=== PATIENT | female | born 1950 | race Caucasian/White ===

== ENCOUNTER 2021-12-27 20:08 | Inpatient (IN) | payer OTHER, MEDICAID ==
[~2021-12-27] VITALS: Ht 170.2 cm; Wt 82.7 kg
[2021-12-27 21:22] LABS: Basophils # (auto) 0.1 10 ^3/uL (0-0.2); Basophils % (auto) 0.5 % (0.0-2.0); Eosinophils # (auto) 0.2 10 ^3/uL (0-0.8); Eosinophils % (auto) 1.5 % (0.0-7.0); Hematocrit 43.3 % (36.0-46.0); Hemoglobin 15.3 g/dL (12.2-16.2); Lymphocytes # (auto) 2.5 10 ^3/uL (0.4-5.4); Lymphocytes % (auto) 23.1 % (10.0-50.0); Mean Corpuscular Hemoglobin 30.3 pg (28.0-32.0); Mean Corpuscular Hgb Conc. 35.3 g/dL (32.0-36.0); Mean Corpuscular Volume 85.9 fL (80.0-100.0); Neutrophils % (auto) 65.9 % (37.0-80.0); Nucleated Red Blood Cells % 0.1 %; Red Blood Cells 5.04 10^6/uL (4.0-5.20); Red Cell Distribution Width 13.1 % (11.8-14.3); White Blood Cell 10.7 10^3/uL (4.4-10.8)
[2021-12-27 21:40] LABS: Albumin 3.7 g/dL (3.4-5.0); BUN/Creatinine Ratio 19.1; Calcium 9.3 mg/dL (8.5-10.1); Potassium 3.9 mmol/L (3.5-5.1)
[2021-12-27 21:44] LABS: Bilirubin, Total 0.5 mg/dL (0.2-1.0); Total Protein 7.3 g/dL (6.4-8.2)
[2021-12-28 00:03] LABS: Urine Bacteria FEW /hpf (None Seen); Urine Blood 1+ /uL (Negative); Urine Hyaline Cast MANY /lpf (0 - 2); Urine Mucus FEW (None Seen); Urine Specific Gravity 1.023 (1.001-1.035); Urine WBC 6 /hpf (0 - 5)
[2021-12-28] MEDS ORDERED: ONDANSETRON HCL 4 MG/2 ML VIAL IV PRN (00:45)
[2021-12-28] MEDS ORDERED: ACETAMINOPHEN 325 MG TAB PO PRN (00:45)
[2021-12-28] MEDS ORDERED: DEXTROSE (50%) 50ML SYRG IV PRN (00:45)
[2021-12-28] MEDS: cefTRIAXone 1GM/50ML D5W 50 ML IV SCH ×2 (01:54→21:26)
[2021-12-28 02:27] LABS: Alcohol, Urine < 3.0 mg/dL (0-10); Amphetamine Screen, Urine NEGATIVE (NEGATIVE); Barbiturate Scree,Urine NEGATIVE (NEGATIVE); Benzodiazephine Screen, Urine NEGATIVE (NEGATIVE); Cannabinoid Screen, Urine NEGATIVE (NEGATIVE); Cocaine Screen, Urine NEGATIVE (NEGATIVE); Opiate Scree,Urine NEGATIVE (NEGATIVE); Phencyclidine Screen, Urine NEGATIVE (NEGATIVE)
[2021-12-28 06:17] LABS: INR 1.01 (0.9-1.15); Partial Thromboplastin Time 27.1 sec (23.6-33.0)
[2021-12-28] MEDS: InsuLIN REG 1unit/0.01ml Soln (100units/ml) SC SCH ×4 (07:00→21:52)
[2021-12-28] MEDS: ACCU-CHEK COMFORT CURVE STRIP VI SCH ×4 (07:04→21:26)
[2021-12-28 08:52] VITALS: BP 118/67
[2021-12-28] MEDS ORDERED: PANTOPRAZOLE 40 MG TAB PO SCH (10:00)
[2021-12-28] MEDS: LISINOPRIL 10 MG TAB PO SCH (10:06)
[2021-12-28 13:00] VITALS: BP 109/60
[2021-12-28 17:00] VITALS: BP 99/59
[2021-12-28] MEDS ORDERED: ATORVASTATIN 20 MG TAB PO SCH (22:00)
[2021-12-29 05:00] VITALS: BP 91/59
[2021-12-29 05:29] LABS: Basophils # (auto) 0.1 10 ^3/uL (0-0.2); Basophils % (auto) 0.6 % (0.0-2.0); Eosinophils # (auto) 0.3 10 ^3/uL (0-0.8); Eosinophils % (auto) 3.5 % (0.0-7.0); Hematocrit 38.9 % (36.0-46.0); Hemoglobin 13.7 g/dL (12.2-16.2); Lymphocytes # (auto) 2.3 10 ^3/uL (0.4-5.4); Lymphocytes % (auto) 24.2 % (10.0-50.0); Mean Corpuscular Hemoglobin 30.1 pg (28.0-32.0); Mean Corpuscular Hgb Conc. 35.1 g/dL (32.0-36.0); Mean Corpuscular Volume 85.7 fL (80.0-100.0); Monocytes # (auto) 0.8 10 ^3/uL (0-1.3); Monocytes % (auto) 7.9 % (0.0-12.0); Neutrophils # (auto) 6.1 10 ^3/uL (1.6-8.6); Neutrophils % (auto) 63.8 % (37.0-80.0); Nucleated Red Blood Cells % 0.1 %; Red Blood Cells 4.54 10^6/uL (4.0-5.20); Red Cell Distribution Width 13.2 % (11.8-14.3); White Blood Cell 9.5 10^3/uL (4.4-10.8)
[2021-12-29 05:47] LABS: Calcium 8.8 mg/dL (8.5-10.1); Potassium 3.2 mmol/L (3.5-5.1)
[2021-12-29] MEDS: InsuLIN REG 1unit/0.01ml Soln (100units/ml) SC SCH ×3 (06:09→16:56)
[2021-12-29] MEDS: ACCU-CHEK COMFORT CURVE STRIP VI SCH ×3 (06:09→16:57)
[2021-12-29 08:00] VITALS: BP 100/56
[2021-12-29] MEDS: LISINOPRIL 10 MG TAB PO SCH (10:08)
[2021-12-29 11:59] VITALS: BP 99/51
[2021-12-29] MEDS ORDERED: POTASSIUM CHL 20 Meq TABLET PO ONE (13:00)
[2021-12-29] MEDS ORDERED: LISI-716 PO (14:11)
[2021-12-29] MEDS ORDERED: CIPR250T3 PO (14:11)
[2021-12-29] MEDS ORDERED: ATOR20TA50 PO (14:11)
== END 2021-12-29 17:39 | disposition home or self-care (01) | DRG 71 ==
LOC: EDBD 20:08 → ER 20:10 → OVERFLOW 12-28 00:45 → EAST 12-28 08:39
PROVIDERS: ADMIT Nurse Practitioner; ATTEND Internal Medicine Geriatric Medicine
DX: G93.41 Metabolic encephalopathy (principal); N39.0 Urinary tract infection, site not specified; R29.6 Repeated falls; E11.9 Type 2 diabetes mellitus without complications; F03.90 Unspecified dementia, unspecified severity, without behavioral disturbance, psychotic disturbance, mood disturbance, and anxiety; I10 Essential (primary) hypertension; E78.5 Hyperlipidemia, unspecified; F17.210 Nicotine dependence, cigarettes, uncomplicated; J44.9 Chronic obstructive pulmonary disease, unspecified; R19.7 Diarrhea, unspecified; Z20.822 Contact with and (suspected) exposure to COVID-19; Z86.73 Personal history of transient ischemic attack (TIA), and cerebral infarction without residual deficits
CPT/HCPCS: 36415; 51702; 70450; 71045; 72125; 80048; 80053; 80307; 80320; 81001; 82140; 82962; 83605; 83735; 83880; 84484; 85025; 85610; 85730; 87086; 87426; 93005; G0378; J0696; J1815

== ENCOUNTER 2025-05-01 14:41 | Inpatient (IN) | payer OTHER, MEDICAID ==
[~2025-05-01] VITALS: Ht 165.1 cm; Wt 68.5 kg
[~2025-05-01 14:41] MED LIST: ATOR20TA50 PO; CIPR250T3 PO; LISI10TA34 PO
--- NOTE | 2025-05-01 15:19 | DVH ---
CHEST RADIOGRAPH Indication: ams Technique: Single frontal view of the chest was obtained Comparison: CHEST XRAY 1 VIEW on DOS: 12/27/21 FINDINGS: Lines and Tubes: None Lungs: No focal consolidation. Pleura: No effusion. No pneumothorax. Cardiomediastinal contours: Unremarkable Bones: No acute osseous abnormality. IMPRESSION: 1. No acute cardiopulmonary disease.
--- NOTE | 2025-05-01 15:21 | ED.PDOC ---
History of Present Illness HPI Comments 74-year-old female brought in by EMS presents with a chief complaint of headache. Per EMS, patient is having cognitive decline per family and family wants patient to be checked out for a possible stroke as patient has a history of brain bleeds. Patient is poor historian due to dementia. Patient is on Hospice. Time Seen by MD: 14:43 Reviewed Notes: Medications, Allergies Allergies: Coded Allergies: NO KNOWN ALLERGIES (Unverified , 12/27/21) Home Meds Active Scripts Ciprofloxacin Hcl (Ciprofloxacin Hcl) 250 Mg Tab, 1 TAB PO BID, #20 TAB Prov:BECKY TOVAR MD 12/29/21 Lisinopril (Lisinopril) 10 Mg Tab, 10 MG PO DAILY for 30 Days, #30 TAB Prov:BECKY TOVAR MD 12/29/21 Atorvastatin Calcium (ATORVASTATIN CALCIUM) 20 Mg Tab, 20 MG PO HS for 30 Days, #30 TAB Prov:BECKY TOVAR MD 12/29/21 Information Source: Emergency Med Personnel Mode of Arrival: EMS Severity: Moderate Timing: Hours Duration: Since onset Prehospital treatment: [employer] Past Medical History PAST MEDICAL HISTORY: COPD, Dementia, DM, High Lipids, HTN Surgical History: Unobtainable [facility] ASSISTED LIVING History: Unobtainable Family History Family History: Unobtainable Social History Smoker: Cigarettes Alcohol: Denies ETOH Use Drugs: Denies Drug Use Constitutional: denies: chills, diaphoresis, fatigue, fever, malaise, sweats, weakness, others EENTM: denies: blurred vision, double vision, ear bleeding, ear discharge, ear drainage, ear pain, ear ringing, eye pain, eye redness, hearing loss, mouth pain, mouth swelling, nasal discharge, nose bleeding, nose congestion, nose pain, photophobia, tearing, throat pain, throat swelling, voice changes, others Respiratory: denies: cough, hemoptysis, orthopnea, SOB at rest, shortness of breath, SOB with excertion, stridor, wheezing, others Cardiovascular: denies: chest pain, dizzy spells, diaphoresis, Dyspnea on exertion, edema, irregular heart beat, left arm pain, lightheadedness, palpitations, PND, syncope, others Gastrointestinal: denies: abdomen distended, abdominal pain, blood streaked bowels, constipated, diarrhea, dysphagia, difficulty swallowing, hematemesis, melena, nausea, poor appetite, poor fluid intake, rectal bleeding, rectal pain, vomiting, others Genitourinary: denies: abnormal vagina bleeding, burning, dyspareunia, dysuria, flank pain, frequency, hematuria, incontinence, pain, , vagina discharge, urgency, others Neurological: reports: headache; denies: dizziness, fainting, left sided numbness, left sided weakness, numbness, paresthesia, pre-existing deficit, right sided numbness, right sided weakness, seizure, speech problems, tingling, tremors, weakness, others Musculoskeletal: denies: back pain, gout, joint pain, joint swelling, muscle pain, muscle stiffness, neck pain, others Integumetry: denies: bruises, change in color, change in hair/nails, dryness, laceration, lesions, lumps, rash, wounds, others Allergic/Immunocompromised: denies: Difficulty Healing, Frequent Infections, Hi ves, Itching, others Hematologic/Lymphatic: denies: anemia, blood clots, easy bleeding, easy bruising, swollen glands, others Endocrine: denies: excessive hunger, excessive sweating, excessive thirst, excessive urination, flushing, intolerance to cold, intolerance to heat, unexplained weight gain, unexplained weight loss, others Psychiatric: denies: anxiety, bipolar disorder, depression, hopeless, panic disorder, schizophrenia, sleepless, suicidal, others Unable to Obtain due to: Altered Mental Status, Dementia All Other Systems: Reviewed and Negative Physical Exam General Appearance: No Apparent Distress, Normal HEENT: Normal ENT Inspection, Pharynx Normal, TMs Normal Neck: Full Range of Motion, Non-Tender, Normal, Normal Inspection Respiratory: Chest Non-Tender, Lungs Clear, No Accessory Muscle Use, No Respiratory Distress, Normal Breath Sounds Cardiovascular: No Edema, No JVD, No Murmur, No Gallop, Normal Peripheral Pulses, Regular Rate/Rhythm Breast Exam: Deferred Gastrointestinal: No Organomegaly, Non Tender, No Pulsatile Mass, Normal Bowel Sounds, Soft Genitalia: Deferred Pelvic: Deferred Rectal: Deferred Extremities: No calf tenderness, Normal capillary refill, Normal inspection, Normal range of motion, Non-tender, No pedal edema Musculoskeletal : Apperance: Normal Neurologic: Alert, pin chaser II-XII nml as Tested, No Motor Deficits, Normal Affect, Normal Mood, No Sensory Deficits Cerebellar Function: Normal Reflexes: Normal Skin: Dry, Normal Color, Warm Lymphatic: No Adenopathy Was a procedure done? Was a procedure done?: No Differential Dx Considerations may include: CVA, intracranial bleed, infectious etiology, UTI, viral syndrome, electrolyte abnormality X-Ray, Labs, Meds, VS Vital Signs Date Time Temp Pulse Resp B/P (MAP) Pulse Ox O2 Delivery O2 Flow Rate FiO2 05/01/25 14:51 98.7 76 15 150/80 (103) 98 98.7 Lab Test 05/01/25 16:47 05/01/25 14:57 Range/Units Troponin I High Sensitivity 21 20 </=34 ng/L White Blood Count 8.4 4.4-10.8 10^3/uL Red Blood Count 4.66 4.0-5.20 10^6/uL Hemoglobin 13.9 12.2-16.2 g/dL Hematocrit 40.9 36.0-46.0 % Mean Corpuscular Volume 87.7 80.0-100.0 fL Mean Corpuscular Hemoglobin 29.9 28.0-32.0 pg Mean Corpuscular Hemoglobin Concent 34.1 32.0-36.0 g/dL Red Cell Distribution Width 13.6 11.8-14.3 % Platelet Count 288 140-450 10^3/uL Mean Platelet Volume 7.8 6.9-10.8 fL Neutrophils (%) (Auto) 66.2 37.0-80.0 % Lymphocytes (%) (Auto) 22.1 10.0-50.0 % Monocytes (%) (Auto) 7.7 0.0-12.0 % Eosinophils (%) (Auto) 3.6 0.0-7.0 % Basophils (%) (Auto) 0.4 0.0-2.0 % Neutrophils # (Auto) 5.6 1.6-8.6 10 ^3/uL Lymphocytes # (Auto) 1.9 0.4-5.4 10 ^3/uL Monocytes # (Auto) 0.6 0-1.3 10 ^3/uL Eosinophils # (Auto) 0.3 0-0.8 10 ^3/uL Basophils # (Auto) 0 0-0.2 10 ^3/uL Nucleated Red Blood Cells 0.1 % Sodium Level 141 136-145 mmol/L Potassium Level 5.0 3.5-5.1 mmol/L Chloride Level 103 98-107 mmol/L Carbon Dioxide Level 33 H 20-31 mmol/L Anion Gap 5 5-15 Blood Urea Nitrogen 20 9-23 mg/dL Creatinine 0.90 0.550-1.02 mg/dL Glomerular Filtration Rate Calc 68 >90 mL/min BUN/Creatinine Ratio 22.2 H 10.0-20.0 Serum Glucose 102 74-106 mg/dL Calcium Level 9.7 8.7-10.4 mg/dL Time of 1ST Reevaluation: 15:13 Reevaluation 1ST: Unchanged Patient Education/Counseling: Diagnosis, Treatment, Need For Follow Up Family Education/Counseling: No Family Present SEPSIS Sepsis Screen Physician Orders Urinalysis (05/01/25 14:45) Chest Portable (05/01/25 14:45) Head Without Contrast (05/01/25 14:45) Troponin-I Hs (05/01/25 15:45) Troponin-I Hs (05/01/25 17:45) Vital Signs Date Time Temp Pulse Resp B/P (MAP) Pulse Ox O2 Delivery O2 Flow Rate FiO2 05/01/25 14:51 98.7 76 15 150/80 (103) 98 98.7 Laboratory Tests Test 05/01/25 14:57 White Blood Count 8.4 10^3/uL (4.4-10.8) Departure 1 Departure Time of Disposition: 18:15 (Patient presents with metabolic encephalopathy and worsening confusion. Family is very concerned and wanted a full workup and treatment for patient despite patient was on home hospice. CT scan appears unchanged from prior. We will admit patient for further workup and expert consultation) Impression: Primary Impression: Acute metabolic encephalopathy Additional Impression: Generalized weakness Disposition: ADMITTED INPATIENT Admit to: Med Surg Condition: Serious Critical Care Note Critical Care Time?: Yes Critical care comment: Concern for CVA Authorized and Performed by: Rock Luciano MD Total critical care time: Approximately 37 minutes Due to a high probability of clinically significant, life threatening deterioration, the patient required my highest level of preparedness to intervene emergently and I personally spent this critical care time directly and personally managing the patient. This critical care time included obtaining a history; examining the patient; pulse oximetry; ordering and review of studies; arranging urgent treatment with development of a management plan; evaluation of patient's response to treatment; frequent reassessment; and, discussions with other providers. This critical care time was performed to assess and manage the high probability of imminent, life-threatening deterioration that could result in multi-organ failure. It was exclusive of separately billable procedures and treating other patients and teaching time. Please see my other sections and the rest of the note for further information on patient assessment and treatment. Stability Stability form required: No Heart Score Heart Score: Heart Score Response (Comments) Value History N/A 0 EKG N/A 0 Age N/A 0 Risk Factors N/A 0 Troponin N/A 0 Total 0 I personally scribed for ROCK LUCIANO MD ([email or web address]) on 05/01/25 at 15:21. Electronically submitted by José Beverly ([email or web address]). ROCK LUCIANO MD May 01, 2025 15:21
[2025-05-01 15:23] LABS: Chloride 103 mmol/L (98-107); Potassium 5.0 mmol/L (3.5-5.1); Sodium 141 mmol/L (136-145)
[2025-05-01 15:24] LABS: Anion Gap 5 (5-15)
[2025-05-01 15:25] LABS: Calcium 9.7 mg/dL (8.7-10.4)
[2025-05-01 15:27] LABS: Hematocrit 40.9 % (36.0-46.0); Hemoglobin 13.9 g/dL (12.2-16.2); Mean Corpuscular Hemoglobin 29.9 pg (28.0-32.0); Mean Corpuscular Volume 87.7 fL (80.0-100.0); Nucleated Red Blood Cells % 0.1 %
[2025-05-01 15:29] LABS: Carbon Dioxide 33 mmol/L (20-31)
[2025-05-01 15:30] LABS: BUN/Creatinine Ratio 22.2 (10.0-20.0); Blood Urea Nitrogen 20 mg/dL (9-23); Glucose 102 mg/dL (74-106)
--- NOTE | 2025-05-01 15:47 | DVH ---
EXAM: CT HEAD WITHOUT CONTRAST INDICATION: ams TECHNIQUE: CT of the head without intravenous contrast. Coronal and sagittal reformatted images are s ubmitted. Radiation Dose : 1. Head: CT Dose: CTDI volume is 52.4 mGy. Dose-length product is 926.2 mGy*cm The dose indicators for CT are the volume Computed Tomography (CT) Dose Index (CTDIvol) and the Dose Length Product (DLP), and are measured in units of mGy and mGy-cm, respectively. These indicators are not patient dose, but values generated from the CT scanner acquisition factors. The report includes radiation exposure data for exposures received during this examination. All CT scans at this medical facility are performed using dose modulation techniques as appropriate to a performed exam including the following: Automated exposure control was utilized; adjustment of the MA and/or KV according to patient size; and use of iterative reconstruction technique. COMPARISON: HEAD WITHOUT CONTRAST on DOS: 12/27/21 FINDINGS: There is no evidence of acute intracranial hemorrhage, extra-axial collection, mass effect, midline s hift, herniation or hydrocephalus. There is a chronic left [employer]DE[employer] MILL OPERATOR infarct with ex vacuo dilatation of the left lateral ventricle. Mildly dilated left lateral ventricle. There are periventricular and subcortical hypodensities, nonspecific, but likely reflecting sequelae of chronic microvascular ischemic changes. The ahmadi-white differentiation is intact. The visualized paranasal sinuses and mastoid air cells are clear. No depressed calvarial fracture. The surrounding soft tissues are unremarkable. IMPRESSION: 1. No acute intracranial abnormality. 2. Chronic left [employer]ANDEM MILL OPERATOR infarct with ex vacuo dilatation of the left lateral ventricle.
[2025-05-01 17:03] VITALS: PULSE 76; RESP 16; O2SAT 99
[2025-05-01 19:30] VITALS: RESP 18; O2SAT 96
[2025-05-01] MEDS: METOPROLOL TARTRATE 50 MG TAB PO ONE (22:15)
[2025-05-01] MEDS: SODIUM CHLORIDE 0.9% 1,000 ML IV SCH (22:15)
[2025-05-01] MEDS ORDERED: MORPHINE SULFATE INJ 2 MG/ml SYRG IV PRN (22:15)
[2025-05-01] MEDS ORDERED: NITROGLYCERIN 0.4 MG SL TAB SL PRN (22:15)
[2025-05-01] MEDS: FAMOTIDINE 20 MG TAB PO ONE (22:15)
[2025-05-01] MEDS ORDERED: ACETAMINOPHEN 325 MG TAB PO PRN (22:15)
--- NOTE | 2025-05-01 22:28 | DVHHP2 ---
History of Present Illness History of Present Illness This is a 74-year-old female with past medical history of COPD with no home oxygen, Dementia, DM 2, HLD, stroke-April 2019, HTN, Depression BIBEMS due to headache for 2 weeks which is worsen x week 08/02, occasionally radiates to neck, aggravating on noise but no relieving factors. Her daughter Darcy on bedside and informed patient lives with care-legal director, lost more than 10 lb last 2 week. Patient feelings generalized weakness for same duration. Walks with walker at home, follow up with hospice team [facility] providers. Per EMS, patient is having cognitive decline per family and family wants patient to be checked out for a possible stroke. Patient is poor historian due to dementia. Patient denies any nausea, vomiting, abdominal pain, SOB, chest pain, diarrhea, constipation, vertigo, visual disturbance, photophobia. PAST MEDICAL HISTORY: COPD with no home oxygen, Dementia, DM 2, HLD, stroke-April 2019, HTN, Depression Surgical History: None Family History: Noncontributory Smoker: ex-smoker Alcohol: Denies ETOH Use Drugs: Denies Drug Use Allergy: No known allergy PCP: hospice team [facility] providers. Review of Systems Constitutional: Yes: Weakness; No: Fever, Chills, Sweats, Malaise, Other Eyes: No: Pain, Vision change, Conjunctivae inflammation, Eyelid inflammation, Other, Redness ENT: No: Ear pain, Ear discharge, Nose pain, Nose discharge, Nose congestion, Mouth pain, Mouth swelling, Throat pain, Throat swelling, Other Respiratory: No: Cough, Dry, Shortness of breath, SOB with excertion, Wheezing, Hemoptysis, Pleuritic Pain, Sputum, Wheezing, Other Cardiovascular: No: Chest Pain, Palpitations, Orthopnea, Paroxysmal Noc. Dyspnea, Edema, Lt Headedness, Other Gastrointestinal: No: Nausea, Vomiting, Abdominal Pain, Diarrhea, Constipation, Melena, Hematochezia, Other Genitourinary: No Dysuria, No Frequency, No Incontinence, No Hematuria, No Retention, No Other Musculoskeletal: No: other, neck pain, shoulder pain, arm pain, back pain, hand pain, leg pain, foot pain Skin: No: Rash, Lesions, Jaundice, Bruising, Other Neurological: Other (HEADACHE) Allergies: Coded Allergies: NO KNOWN ALLERGIES (Unverified , 12/27/21) Medications Current Medications Medications Dose Ordered Sig/Sera Route Start Time Stop Time Status Last Admin Dose Admin Nitroglycerin 0.4 mg Q5MINP PRN SL 05/01/25 22:15 Morphine Sulfate 2 mg Q30M PRN IV 05/01/25 22:15 Sodium Chloride 1,000 ml @ 75 mls/hr [id number] IV 05/01/25 22:15 UNV Famotidine 20 mg BID PO 05/02/25 10:00 UNV Acetaminophen 650 mg Q6HP PRN PO 05/01/25 22:15 UNV Apixaban 5 mg BID PO 05/02/25 10:00 UNV Risperidone 1 mg DAILY PO 05/02/25 10:00 UNV Atorvastatin Calcium 40 mg HS PO 05/02/25 22:00 UNV Exam Vital Signs Vital Signs Date Time Temp Pulse Resp B/P (MAP) Pulse Ox O2 Delivery O2 Flow Rate FiO2 05/01/25 20:00 73 05/01/25 19:30 18 96 Room Air* 0 21 05/01/25 17:00 98.0 166/81 (109) 98.0 General Appearance: Alert, Cooperative, Other (GENERALIZED WEAKNESS) HEENT: PERRLA, EOMI Respiratory: Clear to auscultation, Normal air movement Cardiovascular: Regular rate, Normal S1, Normal S2 Abdominal: Normal bowel sounds, Soft, No tenderness, No hepatospenomegaly Extremities: No clubbing, No cyanosis, No edema Skin: No rashes, No breakdown Neuro: Other (CONTINUOUS MOVEMENT LIPS DURING CONVERSATION) Labs/Xrays Labs Test 05/01/25 18:31 05/01/25 14:57 Range/Units Troponin I High Sensitivity 22 </=34 ng/L White Blood Count 8.4 4.4-10.8 10^3/uL Red Blood Count 4.66 4.0-5.20 10^6/uL Hemoglobin 13.9 12.2-16.2 g/dL Hematocrit 40.9 36.0-46.0 % Mean Corpuscular Volume 87.7 80.0-100.0 fL Mean Corpuscular Hemoglobin 29.9 28.0-32.0 pg Mean Corpuscular Hemoglobin Concent 34.1 32.0-36.0 g/dL Red Cell Distribution Width 13.6 11.8-14.3 % Platelet Count 288 140-450 10^3/uL Mean Platelet Volume 7.8 6.9-10.8 fL Neutrophils (%) (Auto) 66.2 37.0-80.0 % Lymphocytes (%) (Auto) 22.1 10.0-50.0 % Monocytes (%) (Auto) 7.7 0.0-12.0 % Eosinophils (%) (Auto) 3.6 0.0-7.0 % Basophils (%) (Auto) 0.4 0.0-2.0 % Neutrophils # (Auto) 5.6 1.6-8.6 10 ^3/uL Lymphocytes # (Auto) 1.9 0.4-5.4 10 ^3/uL Monocytes # (Auto) 0.6 0-1.3 10 ^3/uL Eosinophils # (Auto) 0.3 0-0.8 10 ^3/uL Basophils # (Auto) 0 0-0.2 10 ^3/uL Nucleated Red Blood Cells 0.1 % Sodium Level 141 136-145 mmol/L Potassium Level 5.0 3.5-5.1 mmol/L Chloride Level 103 98-107 mmol/L Carbon Dioxide Level 33 H 20-31 mmol/L Anion Gap 5 5-15 Blood Urea Nitrogen 20 9-23 mg/dL Creatinine 0.90 0.550-1.02 mg/dL Glomerular Filtration Rate Calc 68 >90 mL/min BUN/Creatinine Ratio 22.2 H 10.0-20.0 Serum Glucose 102 74-106 mg/dL Calcium Level 9.7 8.7-10.4 mg/dL SEPSIS Sepsis Screen Date sepsis recognized/suspect: May 01, 2025 Time Sepsis recognized/suspect: 1450 Recent Procedure: No On Antibiotic Therapy: No Respiratory Rate >20: No Heart Rate >90: No Temp<36 C (96.8 F) or >38.3 C: No SBP <90 or MAP <65 mmHG: No New Acute Mental Status Change: No Is the patient on CPAP, BIPAP,: No Physician Orders Urinalysis (05/01/25 14:45) Chest Portable (05/01/25 14:45) Head Without Contrast (05/01/25 14:45) Admit (05/01/25 22:05) Nitroglycerin Sublingual (Ntrostat Subli (05/01/25 22:15) Morphine Sulfate Injection (05/01/25 22:15) Urinalysis (05/01/25 22:14) NS (05/01/25 22:15) Famotidine Tablet (Pepcid Tablet) (05/02/25 10:00) Famotidine Tablet (Pepcid Tablet) (05/01/25 22:15) Acetaminophen Tablet (Tylenol Tablet) (05/01/25 22:15) Code Status (05/01/25 22:14) Apixaban (Eliquis) (05/02/25 10:00) Risperidone Tablet (Risperdal Tablet) (05/02/25 10:00) Risperidone Tablet (Risperdal Tablet) (05/02/25 22:00) Atorvastatin (Lipitor) (05/02/25 22:00) Metoprolol Tartrate Tablet (Lopressor Ta (05/01/25 22:15) Metoprolol Tartrate Tablet (Lopressor Ta (05/02/25 10:00) Quetiapine Fumarate Tablet (Seroquel Tab (05/02/25 10:00) Lisinopril Tablet (Zestril Tablet) (05/02/25 10:00) Trazodone Hcl (Desyrel) (05/02/25 22:00) Vital Signs Date Time Temp Pulse Resp B/P (MAP) Pulse Ox O2 Delivery O2 Flow Rate FiO2 05/01/25 20:00 73 05/01/25 19:30 18 96 Room Air* 0 21 05/01/25 17:03 76 16 99 Room Air* 0 21 05/01/25 17:00 98.0 76 16 166/81 (109) 99 98.0 05/01/25 14:51 98.7 76 15 150/80 (103) 98 98.7 Laboratory Tests Test 05/01/25 14:57 White Blood Count 8.4 10^3/uL (4.4-10.8) Assessment/Plan Assessment/Plan #Cognitive decline likely due to Acute metabolic encephalopathy -Per EMS, patient is having cognitive decline. -patient history of stroke associated with multiple comorbid medical condition -Poor historian, daughter bedside, lives with caregivers -TROPONIN-20>21>22 -CT head w/o contrast: No acute intracranial abnormality. Chronic left CAMPAIGN MANAGER infarct with ex vacuo dilatation of the left lateral ventricle. -UA, TSH, VITAMIN B12, FOLIC ACID, A1C order -start home medication risperidone 1 mg bedtime, quetiapine 50 mg po b.i.d. -NSS75 cc/hours -CMP will follow #COPD with no home oxygen -Ex- smokers, not on any medication #Dementia -Can not take care herself. -CT head w/o contrast: No acute intracranial abnormality. Chronic left CAMPAIGN MANAGER infarct with ex vacuo dilatation of the left lateral ventricle. # Type 2 diabetes mellitus -CMP blood glucose 102 -HOLD home medication metformin 1000 mg, glipizide 5 mg -Will order insulin according to blood sugar -HbA1c order # HYPERLIPIDEMIA -Atorvastatin 40 mg p.o. daily #Stroke-April 2019 WITH NO RESIDUAL WEAKNESS -CT head w/o contrast: No acute intracranial abnormality. Chronic left CAMPAIGN MANAGER infarct with ex vacuo dilatation of the left lateral ventricle -Eliquis 5 mg p.o. b.i.d. # ESSENTIAL HYPERTENSION -Metoprolol 50 mg p.o. b.i.d. -Lisinopril 10 mg p.o. daily #Depression -Trazodone 50 mg po at bedtime Diet: Regular GI prophylaxis: Famotidine 20 mg p.o. DVT prophylaxis: Eliquis5 mg p.o. b.i.d. Goals of care discussions. More than 20 9 minute spent. Code status-DNR. Case discussed with Dr. Baca Plan discussed with: Patient, Other (NURSE) My Orders Orders - COLLETTE MORAN RESIDENT Procedure Category Date Status Time Admit ADMIT 05/01/25 Transmitted 22:05 Nitroglycerin PHA 05/01/25 In Process Sublingual (Ntrostat 22:15 Morphine Sulfate PHA 05/01/25 In Process Injection 22:15 Urinalysis LAB 05/01/25 Transmitted 22:14 NS PHA 05/01/25 Transmitted 22:15 Famotidine Tablet PHA 05/02/25 Transmitted (Pepcid Tablet) 10:00 Famotidine Tablet PHA 05/01/25 Transmitted (Pepcid Tablet) 22:15 Acetaminophen Tablet PHA 05/01/25 Transmitted (Tylenol Tablet) 22:15 Code Status CODE 05/01/25 Transmitted 22:14 Apixaban (Eliquis) PHA 05/02/25 Transmitted 10:00 Risperidone Tablet PHA 05/02/25 Transmitted (Risperdal Tablet) 10:00 Risperidone Tablet PHA 05/02/25 Transmitted (Risperdal Tablet) 22:00 Atorvastatin (Lipitor) PHA 05/02/25 Transmitted 22:00 Metoprolol Tartrate PHA 05/01/25 Transmitted Tablet (Lopressor Ta 22:15 Metoprolol Tartrate PHA 05/02/25 Transmitted Tablet (Lopressor Ta 10:00 Quetiapine Fumarate PHA 05/02/25 Transmitted Tablet (Seroquel Tab 10:00 Lisinopril Tablet PHA 05/02/25 Transmitted (Zestril Tablet) 10:00 Trazodone Hcl PHA 05/02/25 Transmitted (Desyrel) 22:00 Date of Service: May 01, 2025 Billing Provider: ANDREA BACA MD Common Visit Codes: 01622-[id number] INP/OBS CARE (HIGH) Secondary Visit Codes: 53956-[id number] CARE PLAN 30 MINUTES COLLETTE MORAN RESIDENT May 01, 2025 22:28
[2025-05-02 02:58] VITALS: BP 139/76; PULSE 72; RESP 18; RESP 19; TEMP 98; O2SAT 95
[2025-05-02 05:11] VITALS: BP 130/72; PULSE 70; RESP 19; TEMP 98; O2SAT 96
[2025-05-02] MEDS ORDERED: QUET100T47 PO (06:11)
[2025-05-02] MEDS ORDERED: GLIP5TAB21 PO (06:11)
[2025-05-02] MEDS ORDERED: APIX5TAB PO (06:11)
[2025-05-02] MEDS ORDERED: RISP1TAB63 PO (06:11)
[2025-05-02] MEDS ORDERED: METF-370 PO (06:11)
[2025-05-02] MEDS ORDERED: TRAZ-227 PO (06:11)
[2025-05-02] MEDS ORDERED: FURO20TA3 PO (06:11)
[2025-05-02 07:07] LABS: Alanine Aminotransferase 14 U/L (7-40); Albumin 4.4 g/dL (3.2-4.8); Alkaline Phosphatase 95 U/L (46-116); Anion Gap 9 (5-15); BUN/Creatinine Ratio 15.8 (10.0-20.0); Blood Urea Nitrogen 16 mg/dL (9-23); Calcium 9.6 mg/dL (8.7-10.4); Carbon Dioxide 29 mmol/L (20-31); Chloride 105 mmol/L (98-107); Potassium 3.9 mmol/L (3.5-5.1); Sodium 143 mmol/L (136-145); Total Protein 6.9 g/dL (5.7-8.2)
[2025-05-02 07:08] LABS: Bilirubin, Total 0.6 mg/dL (0.2-1.0); Glucose 113 mg/dL (74-106)
[2025-05-02 08:16] LABS: Hematocrit 41.8 % (36.0-46.0); Hemoglobin 14.3 g/dL (12.2-16.2); Mean Corpuscular Hemoglobin 29.9 pg (28.0-32.0); Mean Corpuscular Volume 87.6 fL (80.0-100.0); Nucleated Red Blood Cells % 0.1 %
[2025-05-02] MEDS: FAMOTIDINE 20 MG TAB PO SCH (10:01)
[2025-05-02] MEDS: APIXABAN 5 MG TAB PO SCH (10:01)
[2025-05-02] MEDS: METOPROLOL TARTRATE 50 MG TAB PO SCH (10:02)
[2025-05-02] MEDS: LISINOPRIL 5 MG TAB PO SCH (10:02)
[2025-05-02] MEDS: risperiDONE 1 MG TAB PO SCH (10:04)
[2025-05-02] MEDS: SODIUM CHLORIDE 0.9% 1,000 ML IV SCH (10:15)
[2025-05-02 13:30] VITALS: BP 165/85; PULSE 66; RESP 19; TEMP 98.7; O2SAT 95
[2025-05-02 14:15] VITALS: BP 128/78
[2025-05-02] MEDS ORDERED: hydrALAZINE HCL 20 MG/ML VL IV PRN (17:15)
[2025-05-02] MEDS ORDERED: DEXTROSE (50%) 50ML SYRG IV PRN (17:15)
[2025-05-02 17:30] VITALS: BP 118/58; PULSE 76; RESP 18; TEMP 98.4; O2SAT 99
--- NOTE | 2025-05-02 17:45 | DVHPNRES ---
Progress Note Date Seen: May 02, 2025 Resident Creating Document: THIERNO CARR RESIDENT Has the PT tested + for MRSA If YES, has PT been informed?: No Medical Necessity Reason Pt with a Central, PICC or Fol: No Subjective Review of Systems This is a 74-year-old female with past medical history of COPD with no home oxygen, Dementia, DM 2, HLD, stroke-April 2019, HTN, Depression, Patient was brought to the ED due to headache for 2 weeks which is worsen x week 08/02, occasionally radiates to neck, aggravating on noise but no relieving factors. 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 Patient feelings generalized weakness for same duration. Walks with walker at home, follow up with hospice team [facility] providers. Per EMS, patient is having cognitive decline per family and family wants patient to be checked out for a possible stroke. Patient is poor historian due to dementia. Patient denies any nausea, vomiting, abdominal pain, SOB, chest pain, diarrhea, constipation, vertigo, visual disturbance, photophobia. 05/02/25: Patient was evaluated at bedside today, she reports the headache have improved /, start presenting nausea, no vomit, vital signs were reviewed, BP today is: 130/72, UA and urine culture were requested today, fluids were added it. Patient will be followed up closely. ROS: Constitutional: Alert, active, No: Fever, Chills, Sweats, Malaise, Other Eyes: No: Pain, Vision change, Conjunctivae inflammation, Eyelid inflammation, Other, Redness ENT: No: Ear pain, Ear discharge, Nose pain, Nose discharge, Nose congestion, Mouth pain, Mouth swelling, Throat pain, Throat swelling, Other Respiratory: No: Cough, Dry, Shortness of breath, SOB with excertion, Wheezing, Hemoptysis, Pleuritic Pain, Sputum, Wheezing, Other Cardiovascular: No: Chest Pain, Palpitations, Orthopnea, Paroxysmal Noc. Dyspnea, Edema, Lt Headedness, Other Gastrointestinal: Nausea, no Vomiting, Abdominal Pain, Diarrhea, Constipation, Melena, Hematochezia, Other Genitourinary: No Dysuria, No Frequency, No Incontinence, No Hematuria, No Retention, No Other Musculoskeletal: No: other, neck pain, shoulder pain, arm pain, back pain, hand pain, leg pain, foot pain Skin: No: Rash, Lesions, Jaundice, Bruising, Other Neurological: Other (HEADACHE) Allergies: UNK allergies Objective vital signs Vital Sign Date Time Temp Pulse Resp B/P (MAP) Pulse Ox O2 Delivery O2 Flow Rate FiO2 05/02/25 13:30 98.7 66 19 165/85 (111) 95 98.7 05/02/25 08:00 Room Air* 0 21 Total Intake and Output 05/01/25 05/01/25 05/02/25 15:00 23:00 07:00 Intake Total 0 ml Balance 0 ml medications Current Medications Medications Dose Ordered Sig/Sera Route Start Time Stop Time Status Last Admin Dose Admin Nitroglycerin 0.4 mg Q5MINP PRN SL 05/01/25 22:15 Morphine Sulfate 2 mg Q30M PRN IV 05/01/25 22:15 Sodium Chloride 1,000 ml @ 75 mls/hr [id number] IV 05/01/25 22:15 05/02/25 10:13 75 MLS/HR Famotidine 20 mg BID PO 05/02/25 10:00 05/02/25 10:01 20 MG Acetaminophen 650 mg Q6HP PRN PO 05/01/25 22:15 Apixaban 5 mg BID PO 05/02/25 10:00 05/02/25 10:01 5 MG Risperidone 1 mg DAILY PO 05/02/25 10:00 05/02/25 10:04 1 MG Atorvastatin Calcium 40 mg HS PO 05/02/25 22:00 Metoprolol Tartrate 50 mg BID PO 05/02/25 10:00 05/02/25 10:02 50 MG Quetiapine Fumarate 50 mg BID PO 05/02/25 10:00 05/02/25 10:04 50 MG Lisinopril 10 mg DAILY PO 05/02/25 10:00 05/02/25 10:02 10 MG Trazodone HCl 50 mg HS PO 05/02/25 22:00 Diagnostic Test (Pha) 1 strip ACHS 05/02/25 22:00 Insulin Human Regular ACHS SC 05/02/25 22:00 Dextrose 50 ml UD PRN IV 05/02/25 17:15 Hydralazine HCl 10 mg Q6HP PRN IV 05/02/25 17:15 Examination General Appearance: Alert, Cooperative. HEENT: PERRLA, EOMI Respiratory: Clear to auscultation, Normal air movement Cardiovascular: Regular rate, Normal S1, Normal S2 Abdominal: Normal bowel sounds, Soft, No tenderness, No hepatospenomegaly Extremities: No clubbing, No cyanosis, No edema Skin: No rashes, No breakdown Neuro: Oriented only in placed, strength normal, Cranial nerves intact. laboratory and microbiology Laboratory Tests 05/02/25 06:09 Test 05/02/25 06:09 Range/Units Serum Glucose 113 H 74-106 mg/dL Problem List/Assessment/Plan Problem List/Assessment/Plan Assessment/Plan #Cognitive decline likely due to Acute metabolic encephalopathy #R/O: acute stroke #Complex migraine with intractable nausea -Per EMS, patient is having cognitive decline. -patient history of stroke associated with multiple comorbid medical condition -Poor historian, daughter bedside, lives with caregivers -TROPONIN-20>21>22 -CT head w/o contrast: No acute intracranial abnormality. 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 -UA, TSH, VITAMIN B12, FOLIC ACID, A1C order -start home medication risperidone 1 mg bedtime, quetiapine 50 mg po b.i.d. -NSS75 cc/hours -CMP will follow #COPD with no home oxygen -Ex- smokers, not on any medication #Dementia -Can not take care herself. -CT head w/o contrast: No acute intracranial abnormality. 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 # Type 2 diabetes mellitus currently pre-diabetic range -[facility] blood glucose 102 -HOLD home medication metformin 1000 mg, glipizide 5 mg -Will order insulin according to blood sugar -HbA1c 6.0 # Hyperlipidemia -Atorvastatin 40 mg p.o. daily #Stroke-April 2019 WITH NO RESIDUAL WEAKNESS #History of tachyarrythmia unspecified -CT head w/o contrast: No acute intracranial abnormality. 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 b.i.d. # Essential hypertension -Metoprolol 50 mg p.o. b.i.d. -Lisinopril 10 mg p.o. daily #Depression -Trazodone 50 mg po at bedtime Diet: Regular GI prophylaxis: Famotidine 20 mg p.o. DVT prophylaxis: Eliquis5 mg p.o. b.i.d. Goals of care discussions. More than 35minute spent. Code status-DNR. Case discussed with Dr. Reese Plan discussed with: Patient and patient's daugther, Patient and family member (daughter agrees with the plan) Plan discussed with: Patient, Daughter My Orders My Orders Orders - THIERNO CARR RESIDENT Procedure Category Date Status Time Urinalysis LAB 05/02/25 Logged 09:48 Urine Bacterial BRIDGETTE 05/02/25 In Process Culture 10:37 * Merchandise Stocker CONS 05/02/25 Transmitted Consult Initiate Vte ESTER 05/02/25 In Process Prophylaxis 12:13 Dietary Evaluation Review Comments: 1. Monitor PO intake to meet 75% of her needs, 2. Folow up with progress/consultation notes 3. Offer oral supplementation if PO <50% 4. F/U 3-5 days Expected Outcomes/Goals: maintain wt Date of Service: May 02, 2025 Billing Provider: MOIRA ARREDONDO MD Common Visit Codes: [id number] INP/OBS CARE(HIGH) THIERNO CARR RESIDENT May 02, 2025 17:45 MOIRA ARREDONDO MD May 06, 2025 01:11
[2025-05-02 21:00] VITALS: BP 133/84; PULSE 53; RESP 18; TEMP 98.2; O2SAT 90
[2025-05-02] MEDS: ATORVASTATIN 20 MG TAB PO SCH (21:23)
[2025-05-02] MEDS: risperiDONE 1 MG TAB PO ONE (21:24)
[2025-05-02] MEDS: ACCU-CHEK COMFORT CURVE STRIP VI SCH (21:25)
[2025-05-02] MEDS: InsuLIN REG 1unit/0.01ml Soln (100units/ml) SC SCH (21:32)
[2025-05-03 01:00] VITALS: BP 109/50; PULSE 58; RESP 18; TEMP 97.3; O2SAT 95
[2025-05-03 05:00] VITALS: BP 99/60; PULSE 67; RESP 18; TEMP 97.1; O2SAT 95
[2025-05-03 08:06] LABS: Anion Gap 7 (5-15); Carbon Dioxide 29 mmol/L (20-31); Potassium 4.1 mmol/L (3.5-5.1); Sodium 144 mmol/L (136-145)
[2025-05-03 08:07] LABS: Hematocrit 40.3 % (36.0-46.0); Hemoglobin 13.7 g/dL (12.2-16.2); Mean Corpuscular Hemoglobin 30.0 pg (28.0-32.0); Mean Corpuscular Volume 88.3 fL (80.0-100.0); Nucleated Red Blood Cells % 0.1 %
[2025-05-03 08:08] LABS: Calcium 10.0 mg/dL (8.7-10.4)
[2025-05-03 08:12] LABS: BUN/Creatinine Ratio 23.2 (10.0-20.0); Blood Urea Nitrogen 23 mg/dL (9-23); Chloride 108 mmol/L (98-107); Glucose 100 mg/dL (74-106)
[2025-05-03 09:00] VITALS: BP 116/62; PULSE 60; RESP 17; TEMP 98.1; O2SAT 97
[2025-05-03 13:00] VITALS: BP 115/55; PULSE 65; RESP 17; TEMP 98.2; O2SAT 98
[2025-05-03 13:54] LABS: Urine Protein, UAD Negative (Negative)
[2025-05-03] MEDS ORDERED: CIPR500T4 PO (14:41)
[2025-05-03] MEDS ORDERED: DOXY1CAP57 PO (14:41)
--- NOTE | 2025-05-03 15:13 | DVHDSRES ---
Discharge Summary Date of Admission Resident Creating Document: THIERNO CARR RESIDENT May 01, 2025 at 22:05 Date of Discharge: May 03, 2025 Labs/Diagnostic Data: Laboratory Results Test 05/03/25 13:40 05/03/25 10:59 05/03/25 07:18 05/02/25 07:43 Urine Color Light-yellow (Yellow) Urine Clarity Cloudy (Clear) Urine pH 5.5 (5.0-9.0) Urine Specific [place] 1.018 (1.001-1.035) Urine Protein Negative (Negative) Urine Ketones Negative (Negative) Urine Blood Negative /uL (Negative) Urine Nitrite Negative (Negative) Urine Bilirubin Negative (Negative) Urine Urobilinogen Normal mg/dL (Negative) Urine Leukocyte Esterase 3+ /uL (Negative) Urine RBC 3 /hpf (0 - 4) Urine Microscopic WBC 197 /HPF (0-5) Urine Squamous Epithelial Cells Few /hpf (<5) Urine Bacteria Few /hpf (None Seen) Urine Glucose Normal mg/dL (Normal) POC Glucose 140 mg/dl (70-106) White Blood Count 7.6 10^3/uL (4.4-10.8) Red Blood Count 4.57 10^6/uL (4.0-5.20) Hemoglobin 13.7 g/dL (12.2-16.2) Hematocrit 40.3 % (36.0-46.0) Mean Corpuscular Volume 88.3 fL (80.0-100.0) Mean Corpuscular Hemoglobin 30.0 pg (28.0-32.0) Mean Corpuscular Hemoglobin Concent 33.9 g/dL (32.0-36.0) Red Cell Distribution Width 13.5 % (11.8-14.3) Platelet Count 260 10^3/uL (140-450) Mean Platelet Volume 7.8 fL (6.9-10.8) Neutrophils (%) (Auto) 62.5 % (37.0-80.0) Lymphocytes (%) (Auto) 25.0 % (10.0-50.0) Monocytes (%) (Auto) 7.9 % (0.0-12.0) Eosinophils (%) (Auto) 4.1 % (0.0-7.0) Basophils (%) (Auto) 0.5 % (0.0-2.0) Neutrophils # (Auto) 4.7 10 ^3/uL (1.6-8.6) Lymphocytes # (Auto) 1.9 10 ^3/uL (0.4-5.4) Monocytes # (Auto) 0.6 10 ^3/uL (0-1.3) Eosinophils # (Auto) 0.3 10 ^3/uL (0-0.8) Basophils # (Auto) 0 10 ^3/uL (0-0.2) Nucleated Red Blood Cells 0.1 % Sodium Level 144 mmol/L (136-145) Potassium Level 4.1 mmol/L (3.5-5.1) Chloride Level 108 mmol/L (98-107) Carbon Dioxide Level 29 mmol/L (20-31) Anion Gap 7 (5-15) Blood Urea Nitrogen 23 mg/dL (9-23) Creatinine 0.99 mg/dL (0.550-1.02) Glomerular Filtration Rate Calc 60 mL/min (>90) BUN/Creatinine Ratio 23.2 (10.0-20.0) Serum Glucose 100 mg/dL (74-106) Calcium Level 10.0 mg/dL (8.7-10.4) Ammonia 29 umol/L (11-32) Test 05/02/25 06:09 05/01/25 18:31 Hemoglobin A1c 6.0 % A1C (<5.7) Total Bilirubin 0.6 mg/dL (0.2-1.0) Aspartate Amino Transferase (AST) 18 U/L (13-40) Alanine Aminotransferase (ALT) 14 U/L (7-40) Alkaline Phosphatase 95 U/L (46-116) Total Protein 6.9 g/dL (5.7-8.2) Albumin 4.4 g/dL (3.2-4.8) Vitamin B12 Level 417 pg/mL (211-911) Vitamin D 25-Hydroxy 48.4 ng/mL (30.0-100) Folic Acid 20.62 ng/mL (>5.38) Thyroid Stimulating Hormone (TSH) 1.68 uIU/mL (0.55-4.78) Troponin I High Sensitivity 22 ng/L (</=34) Other Laboratory Tests 05/03/25 07:18 Brief Hx & Hospital Course: This is a 74-year-old female with past medical history of COPD with no home oxygen, Dementia, DM 2, HLD, stroke-April 2019, HTN, Depression, Patient was brought to the ED due to headache for 2 weeks which is worsen x week 08/02, occasionally radiates to neck, aggravating on noise but no relieving factors. 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 Patient feelings generalized weakness for same duration. Walks with walker at home, follow up with hospice team [facility] providers. Per EMS, patient is having cognitive decline per family and family wants patient to be checked out for a possible stroke. Patient is poor historian due to dementia. Patient denies any nausea, vomiting, abdominal pain, SOB, chest pain, diarrhea, constipation, vertigo, visual disturbance, photophobia. 05/02/25: Patient was evaluated at bedside today, she reports the headache have improved 2/10, start presenting nausea, no vomit, vital signs were reviewed, BP today is: 130/72, UA and urine culture were requested today, fluids were added it. Patient will be followed up closely. 05/03/25: Patient was evaluated at bedside today, vital signs were reviewed, BP 115/55, she reports the headache have improved 0/10, patient's nausea has stopped, she denies vomit, fever, diarrhea, dysuria or other . Patient UA shows UTI, patient is asymptoms. She will be discharge today with ciprofloxacin 500mg bid and doxyciclin 100 mg bid for 7 days and follow up with primary doctor. ROS: Constitutional: Alert, active, No: Fever, Chills, Sweats, Malaise, Other Eyes: No: Pain, Vision change, Conjunctivae inflammation, Eyelid inflammation, Other, Redness ENT: No: Ear pain, Ear discharge, Nose pain, Nose discharge, Nose congestion, Mouth pain, Mouth swelling, Throat pain, Throat swelling, Other Respiratory: No: Cough, Dry, Shortness of breath, SOB with excertion, Wheezing, Hemoptysis, Pleuritic Pain, Sputum, Wheezing, Other Cardiovascular: No: Chest Pain, Palpitations, Orthopnea, Paroxysmal Noc. Dyspnea, Edema, Lt Headedness, Other Gastrointestinal: Nausea, no Vomiting, Abdominal Pain, Diarrhea, Constipation, Melena, Hematochezia, Other Genitourinary: No Dysuria, No Frequency, No Incontinence, No Hematuria, No Retention, No Other Musculoskeletal: No: other, neck pain, shoulder pain, arm pain, back pain, hand pain, leg pain, foot pain Skin: No: Rash, Lesions, Jaundice, Bruising, Other Neurological: Other (HEADACHE) Physical Exam General Appearance: Alert, Cooperative. HEENT: PERRLA, EOMI Respiratory: Clear to auscultation, Normal air movement Cardiovascular: Regular rate, Normal S1, Normal S2 Abdominal: Normal bowel sounds, Soft, No tenderness, No hepatospenomegaly Extremities: No clubbing, No cyanosis, No edema Skin: No rashes, No breakdown Neuro: Oriented only in placed, strength normal, Cranial nerves intact, muscle strength preserved. #Cognitive decline likely due to Acute metabolic encephalopathy #R/O: acute stroke: CT scan negative #Complex migraine with intractable nausea -Per EMS, patient is having cognitive decline. -patient history of stroke associated with multiple comorbid medical condition -Poor historian, daughter bedside, lives with caregivers -TROPONIN-20>21>22 -CT head w/o contrast: No acute intracranial abnormality. 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 -UA, TSH, VITAMIN B12, FOLIC ACID, A1C order -start home medication risperidone 1 mg bedtime, quetiapine 50 mg po b.i.d. -NSS75 cc/hours -CMP will follow #UTI, No SIRS -Ciprofloxacin 500mg po bid x 7 days -Doxyciclin 100 mg po bid x 7days #COPD with no home oxygen -Ex- smokers, not on any medication #Dementia -Can not take care herself. -CT head w/o contrast: No acute intracranial abnormality. 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 # Type 2 diabetes mellitus currently pre-diabetic range -CMP blood glucose 102 -HOLD home medication metformin 1000 mg, glipizide 5 mg -Will order insulin according to blood sugar -HbA1c 6.0 # Hyperlipidemia -Atorvastatin 40 mg p.o. daily #Stroke-April 2019 WITH NO RESIDUAL WEAKNESS #History of tachyarrythmia unspecified -CT head w/o contrast: No acute intracranial abnormality. 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 b.i.d. # Essential hypertension -Metoprolol 50 mg p.o. b.i.d. -Lisinopril 10 mg p.o. daily #Depression -Trazodone 50 mg po at bedtime Diet: Regular GI prophylaxis: Famotidine 20 mg p.o. DVT prophylaxis: Eliquis5 mg p.o. b.i.d. Goals of care discussions. More than 35minute spent. Code status-DNR. Case discussed with Dr. Reese Plan discussed with: Patient and patient's daugther, Patient and family member (daughter agrees with the plan) Plan discussed with: Patient, Daughter Condition at Discharge: Stable Final Diagnosis/Problems List -Cognitive decline due to acute metabolic encephalopathy -Dementia -COPD with no home O2 -Type 2 DM without hyperglicemia -Hx of stroke, no residual weakness -Essential hypertension -Depresion -UTI Discharge Disposition: Hospice- Medical Facility SNF Discharge Will this Physician continue t: No Discharge Instruct/Medications Diet: Cardiac 2g Na,low cholest Activity: No Restrictions, As Tolerated Follow Up/Referral: follow up with PCP in 1 week Medications: -Ciprofloxacin 500 mg bid for 7 days -Doxyciln 100 mg bid for 7 days Scheduled Apixaban Base (Eliquis), 5 MG PO BID, (Reported) Atorvastatin Calcium (Atorvastatin Calcium), 20 MG PO HS Ciprofloxacin Hcl (Ciprofloxacin Hcl), 1 TAB PO BID Ciprofloxacin Hcl (Ciprofloxacin Hcl), 1 TAB PO BID Doxycycline Monohydrate (Doxycycline Monohydrate), 1 CAP PO BID Furosemide (Furosemide), 20 MG PO DAILY, (Reported) Lisinopril (Lisinopril), 10 MG PO DAILY Metformin Hydrochloride (Metformin Hcl), 1,000 MG PO IBID, (Reported) Quetiapine Fumerate (Quetiapine Fumarate), 50 MG PO BID, (Reported) Risperidone (Risperidone), 1 TAB PO QPM, (Reported) Miscellaneous Medications Glipizide (Glipizide), 5 MG PO, (Reported) Trazodone Hcl (Trazodone Hcl), 50 MG PO, (Reported) Discharge Statement: "Patient was advised to return to the ER or call 911 if any headaches, dizziness, shortness of breath, chest pain, abdominal pain, bleeding, fevers, or worsening of medical condition. Patient was counseled about treatment plan, medications, possible side effects, patientverbalized understanding. All questions were answered to the best of my ability. This discharge took greater then 30 minutes in planning, reviewing documentation, counseling the patient, and discussing with other team members." ASSESSMENT ASSESSMENT Assessment -Cognitive decline due to acute metabolic encephalopathy -Dementia -COPD with no home O2 -Type 2 DM without hyperglicemia -Hx of stroke, no residual weakness -Essential hypertension -Depresion Date of Service: May 03, 2025 Billing Provider: OMIRA ARREDONDO MD Common Visit Codes: [id number] DISCH DAY >30min THIERNO CARR RESIDENT May 03, 2025 15:13 MOIRA ARREDONDO MD May 06, 2025 21:26
== END 2025-05-03 17:42 | disposition hospice, home (50) | DRG 689 ==
LOC: ER 14:41 → EDBD 14:41 → OVERFLOW 22:05 → EAST 05-02 02:43
PROVIDERS: ADMIT Student in an Organized Health Care Education/Training Program; ATTEND Emergency Medicine
DX: N30.00 Acute cystitis without hematuria (principal); G93.41 Metabolic encephalopathy; F03.93 Unspecified dementia, unspecified severity, with mood disturbance; J44.9 Chronic obstructive pulmonary disease, unspecified; Z66 Do not resuscitate; F32.A Depression, unspecified; I10 Essential (primary) hypertension; E11.9 Type 2 diabetes mellitus without complications; E78.5 Hyperlipidemia, unspecified; G43.109 Migraine with aura, not intractable, without status migrainosus; F17.210 Nicotine dependence, cigarettes, uncomplicated; Z86.73 Personal history of transient ischemic attack (TIA), and cerebral infarction without residual deficits; Z79.899 Other long term (current) drug therapy; Z79.84 Long term (current) use of oral hypoglycemic drugs; Z51.5 Encounter for palliative care; Z79.01 Long term (current) use of anticoagulants
CPT/HCPCS: 36415; 70450; 71045; 80048; 80053; 81001; 82140; 82306; 82607; 82746; 82962; 83036; 84443; 84484; 85025; 87086; 87088; 87186; G0378; J1815